=== PATIENT | male | born 1950 | race African-American/Black ===

== ENCOUNTER 2019-02-25 18:32 | Observation (INO) | payer OTHER ==
[~2019-02-25] VITALS: Ht 200.7 cm; Wt 113.4 kg
[2019-02-25 18:36] VITALS: BP 117/65
[2019-02-25 19:46] LABS: ABSOLUTE NEUTROPHILS 5.4 thou/uL (1.4-8.2); BASOPHILS 0.8 % (0.0-2.0); EOSINOPHILS 0.7 % (0.0-3.0); HEMATOCRIT 39.8 % (42.0-52.0); HEMOGLOBIN 12.9 gm/dL (14.0-18.0); LYMPHOCYTES 7.4 % (24.0-44.0); MCH 29.7 pg (26.0-34.0); MCHC 32.4 g/dL (28.0-37.0); MCV 91.6 fL (80.0-100.0); MONOCYTES 8.1 % (1.0-8.0); PLATELET COUNT 121 thou/uL (150-400); RBC 4.35 mil/uL (4.50-6.00); RDW 13.5 % (10.5-14.5)
[2019-02-25 19:51] LABS: ANION GAP 11 mmol/L (7-16); BUN 14 mg/dL (7-18); CHLORIDE 94 mmol/L (98-107); CO2 23 mmol/L (21-32); CREATININE 1.7 mg/dL (0.7-1.3); GLUCOSE 275 mg/dL (74-106); POTASSIUM 4.4 mmol/L (3.5-5.1); SODIUM 128 mmol/L (136-145)
[2019-02-25 20:03] LABS: ALBUMIN 3.4 g/dL (3.4-5.0); SGOT 26 U/L (15-37); SGPT 32 U/L (30-65); TOTAL BILIRUBIN 0.4 mg/dL (<0.1-1.0); TOTAL PROTEIN 7.4 g/dL (6.4-8.2); TROPONIN-I <0.06 ng/mL (<0.06)
[2019-02-25 21:43] VITALS: BP 124/73
[2019-02-25 22:23] VITALS: BP 139/70
[2019-02-26] VITALS (7 sets, daily range): BP systolic 112–131; BP diastolic 59–75
[2019-02-26] MEDS ORDERED: LANTUS SUBQ (03:00)
[2019-02-26] MEDS ORDERED: PROSCAR 5MG TABL5 M1 PO (03:00)
[2019-02-26] MEDS ORDERED: METFORMIN HCL1000 MG PO (03:00)
[2019-02-26] MEDS ORDERED: GABAPENTIN600 M1 PO (03:01)
[2019-02-26 04:33] LABS: CALCIUM 8.7 mg/dL (8.5-10.1); CREATININE 1.3 mg/dL (0.7-1.3); MAGNESIUM 2.2 mg/dL (1.8-2.4); POTASSIUM 4.7 mmol/L (3.5-5.1)
--- NOTE | 2019-02-26 04:56 | NUR ---
ADMITTED TO 219. PT UP TO BR-GAIT STEADY. DENIES DIZZINESS. NO CHANGE IN BP WITH ORTHOSTATICS. IV FLUIDS INFUSING. TAMIFLU STARTED. SEE [facility] FOR ASSESSMENT
[2019-02-26] MEDS ORDERED: TAMIFLU30 MG PO (10:19)
--- NOTE | 2019-02-26 13:44 | NUR ---
ASSUMED CARE 0700. VSS, DENIES PAIN, NO LONGER DIZZY, STEADY GAIT, UP AB TARAN IN ROOM. DC HOME WITH SELF CARE, OBSERVATIONS FORM SIGNED. REVIEWED NEW SCRIPT WITH PATIENT AND GAVE INFORMATION ON NEW MED. IV AND TELE DISCONTINUED.
[2019-02-26 23:08] LABS: GLYCOHEMOGLOBIN (HGB A1C) 7.1 % (4.8-5.6)
--- NOTE | 2019-02-27 09:47 | EKG ---
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 : 1950 Requested By: Justin Saxena Order Number: [id number] MD: Andrey Haley Measurements Intervals [place] Rate: 116 P: 54 ND: 165 QRS: -91 QRSD: 140 T: 21 QT: 332 QTc: 462 Interpretive Statements Sinus tachycardia RBBB and LAFB Baseline wander in lead(s) V5 No previous ECG available for comparison Electronically Signed On 02-27-2019 9:46:59 [employer]CH [employer] by Andrey Haley [email or web address] <ELECTRONICALLY SIGNED> By: Andrey Haley MD, [facility] 02/27/19 [id number] [id number] 41 Andrey Haley MD, [facility] /EPI
== END 2019-02-26 14:16 | disposition home or self-care (01) ==
LOC: ER 18:32 → EROBS 20:46 → 2N 20:46 → ENTRNSPT 02-26 14:07 → EDTRNSPTSTS 02-26 14:14 → 2N 02-26 14:16
PROVIDERS: Emergency Medicine; Nurse Practitioner Acute Care; Nurse Practitioner Family; ADMIT Internal Medicine
DX: J09.X2 Influenza due to identified novel influenza A virus with other respiratory manifestations (principal); N17.9 Acute kidney failure, unspecified; E87.1 Hypo-osmolality and hyponatremia; I95.1 Orthostatic hypotension; E11.40 Type 2 diabetes mellitus with diabetic neuropathy, unspecified; E86.0 Dehydration; Z79.4 Long term (current) use of insulin; Z79.899 Other long term (current) drug therapy
CPT/HCPCS: 10081